=== PATIENT | female | born 1980 | race Asian ===

== ENCOUNTER 2016-11-09 09:52 | Emergency (ER) | payer OTHER ==
[~2016-11-09] VITALS: Ht 152.4 cm; Wt 50.0 kg
[2016-11-09 11:28] LABS: BASOPHILS % 0.5 % (0.0-2.0); EOSINOPHILS % 0.8 % (0.0-5.0); HEMATOCRIT. 41.2 % (36.0-48.0); HEMOGLOBIN. 13.7 g/dL (12.0-16.0); LYMPHOCYTES % 10.3 % (20.0-50.0); MEAN CORPUSCULAR VOLUME 84.6 fL (81.0-99.0); MEAN PLATELET VOLUME 9.9 fl (7.4-10.4); MONOCYTES % 9.1 % (2.0-8.0); NEUTROPHILS % 79.3 % (40.0-76.0); PLATELET 198 x1000/uL (130-400); RED BLOOD CELL COUNT 4.88 mill/uL (4.2-5.4); RED CELL DISTRIBUTION WIDTH 13.8 % (11.6-14.6)
[2016-11-09 11:34] LABS: CHLORIDE 109 mEq/L (98-107)
[2016-11-09 11:35] LABS: INR 1.1; PROTHROMBIN TIME 11.4 sec
[2016-11-09 11:37] LABS: HCG SCREEN NEGATIVE
[2016-11-09 11:39] LABS: CARBON DIOXIDE 26 mEq/L (21-32)
[2016-11-09 11:39] LABS: CLARITY URINE CLEAR (CLEAR); COLOR URINE YELLOW (YELLOW); GLUCOSE URINE 1+ (NEGATIVE); KETONES URINE NEGATIVE (NEGATIVE); LEUKOCYTE ESTERASE URINE NEGATIVE (NEGATIVE); NITRITE URINE NEGATIVE (NEGATIVE); OCCULT BLOOD URINE NEGATIVE (NEGATIVE); PROTEIN URINE NEGATIVE (NEGATIVE); SPECIFIC GRAVITY URINE 1.009 (1.005-1.030); UROBILINOGEN URINE 0.2 E.U./dL (0.2-1.0)
[2016-11-09 11:48] LABS: *AMPHETAMINES SCREEN URINE NEGATIVE (NEGATIVE); *BARBITURATES SCREEN URINE NEGATIVE (NEGATIVE); *BENZODIAZEPINES SCREEN URINE NEGATIVE (NEGATIVE); *COCAINE SCREEN URINE NEGATIVE (NEGATIVE); CANNABINOID URINE SCREEN NEGATIVE (NEGATIVE); METHADONE URINE SCREEN NEGATIVE (NEGATIVE); OPIATES URINE SCREEN NEGATIVE (NEGATIVE); PHENCYCLIDINE URINE SCREEN NEGATIVE (NEGATIVE)
[2016-11-09 13:11] LABS: BG BASE EXCESS 0.1 mmol/L (-2.0-2.0); BG CARBOXYHEMOGLOBIN 0.5 % (0.5-1.5); BG DEOXYHEMOGLOBIN 2.8 % (0.0-5.0); BG FRACTION INSPIRED OXYGEN 21; BG METHEMOGLOBIN 0.2 % (0.0-1.5); BG OXYGEN SATURATION 97.2 % (92.0-98.5); BG OXYHEMOGLOBIN 96.5 % (94.0-97.0); BG PCO2 36.7 mmHg (35.0-45.0); BG PH 7.433 (7.350-7.450); BG SAMPLE SITE LEFT RADIAL; BG TOTAL HEMOGLOBIN 13.7 g/dL (12.0-18.0); BG VENT MODE ROOM AIR
[2016-11-09 15:14] VITALS: BP 100/65
== END 2016-11-09 15:15 | disposition home or self-care (01) ==
LOC: ER 12:37
DX: R19.7 Diarrhea, unspecified (principal); R06.02 Shortness of breath
CPT/HCPCS: 36415; 36600; 80053; 80305; 81001; 82375; 82805; 83690; 84703; 85025; 85610; 99284; Z7610